=== PATIENT | female | born 1975 | race Caucasian/White ===

== ENCOUNTER 2020-07-12 15:03 | Outpatient (CLI) | payer OTHER ==
--- NOTE | 2020-07-12 17:17 | MRI ---
MRI OF THE RIGHT SHOULDER WITHOUT CONTRAST: Date: 07/12/2020 INDICATION: History of fall with right shoulder pain. FINDINGS: There is a healing nondisplaced greater tuberosity fracture. There is mild tendinosis of the supraspi natus without evidence of a full thickness tear. No muscular atrophy is evident. The biceps tendon is located. The visualized glenoid labrum and biceps anchor complex appears intact. Anterior inferior g lenohumeral labral ligamentous complex appears intact. There is mild AC joint osteoarthrosis. A tiny amount of fluid is seen in the subacromial/subdeltoid space. IMPRESSION: 1. Healing nondisplaced fracture involving the right greater tuberosity. 2. Moderate supraspinatus and mild infraspinatus tendinosis without evidence of a full thickness rot ator cuff tear. 3. Mild AC joint osteoarthrosis. 4. Mild amount of fluid in the subacromial/subdeltoid space may reflect mild bursitis. POS: [facility]
== END 2020-07-12 15:04 | disposition home or self-care (01) ==
LOC: BICMRI 15:03
PROVIDERS: ATTEND Physician Assistant Surgical
DX: M67.911 Unspecified disorder of synovium and tendon, right shoulder (principal); S42.91XD Fracture of right shoulder girdle, part unspecified, subsequent encounter for fracture with routine healing; M75.91 Shoulder lesion, unspecified, right shoulder; M19.011 Primary osteoarthritis, right shoulder

== ENCOUNTER 2024-04-14 16:24 | Outpatient (CLI) | payer OTHER | END 2024-04-14 16:25 | disposition home or self-care (01) | LOC: RAD 16:24 | PROVIDERS: ATTEND Nurse Practitioner Family | DX: S99.922A Unspecified injury of left foot, initial encounter (principal); S99.912A Unspecified injury of left ankle, initial encounter ==